=== PATIENT | male | born 1995 | race Caucasian/White ===

== ENCOUNTER 2017-10-09 23:00 | Observation (INO) ==
[2017-10-09] MEDS ORDERED: PROCHLORPERAZINE 10 MG/2 ML INJECTION IVP ONE (23:09)
[2017-10-09] MEDS ORDERED: HYDROMORPHONE 2 MG/ML INJECTION IVP ONE (23:09)
[2017-10-09] MEDS ORDERED: KETOROLAC 30 MG/ML INJECTION IVP ONE (23:09)
--- NOTE | 2017-10-09 23:15 | Emergency Department Report ---
Headache HPI - General Stated Complaint: blas Time Seen by Provider: 10/09/17 23:04 Source: patient, family Mode of arrival: ambulatory Limitations: no limitations - History of Present Illness HPI Narrative: Pt presents with his parents with severe intractable headache over the past week. Patient was apparently seen by his primary care provider who get lab work drawn the first day of his headache, was found to have an elevated white blood cell count, but thought to be having migraine-like headaches. Patient has no history of migraines or headaches, and was scheduled for an outpatient MRI next week. Patient has been using Imitrex and [id number] pain medications without relief since then. Today the patient comes in with a severe global headache that is intractable, and has been unaffected by any medication that he stay can today. Patient states that the pain is simply unbearable, and he cannot take it any longer. Patient has photophobia with nausea, but has not vomited. No fever, no diarrhea , chest or abdominal complaint. - Related Data Home Medications Medication Instructions Recorded Confirmed Methylphenidate HCl 1 tab PO DAILY 10/09/17 10/09/17 [Methylphenidate HCl Cd] Naproxen [Naproxen] 1 tab PO BID PRN 10/09/17 10/09/17 Ondansetron HCl [Ondansetron HCl] 1 tab PO PRN 10/09/17 SUMAtriptan succinate [Sumatriptan 1 tab PO DAILY PRN 10/09/17 10/09/17 Succinate] Allergies Allergy/AdvReac Type Severity Reaction Status Date / Time No Known Allergies Allergy Verified 10/09/17 23:25 Review of Systems All systems: reviewed and negative except as stated PFSH Patient Stated Medical History Hypertension Yes: BORDERLINE - Social History Smoking status: Current every day smoker Physical Exam - Limitations Limitations: no limitations - General General appearance: alert, in distress (patient appears in significant distress , throwing his head from side to side, in obvious severe pain.), other (patient appears diaphoretic,) - Normal Exams: Head:: Normocephalic without trauma Eyes:: Pupils are PERRLA w/ EOMI, No scleral icterus, irritation, or foreign bodies noted ENMT:: No facial trauma, nasal exudates, pharyngeal erythema, or exudates are noted Neck:: Full range of motion, without adenopathy, JVD, bruits or thyromegaly Chest/Respirations:: Clear all minaya, with good airflow, and symmetry bilaterally Cardiovascular:: Regular rate and rhythm, without murmur or gallop, Pulses 2+ all extremities, capillary refill, <2 seconds all extremities Abdomen:: Bowel sounds positive, soft, non-tender, non-distended, no hepatosplenomegaly, masses or bruits noted Lymphatic:: No lymphadenopathy, or lymphedema noted Musculoskeletal:: No tenderness, or deformity noted, good range of motion, all extremities Integumentary:: No rashes, hives, or bruising noted, hair and nails, without abnormality Neurological:: Patient is alert, and oriented, cranial nerves, motor/sensory/ cerebellar, exams w/o gross deficits, to observation Psychiatric:: Patient exhibits, appropriate attention, emotion and affect Course Vital Signs Temperature 98.2 F 10/09/17 23:01 Pulse Rate 57 L 10/09/17 23:01 Respiratory Rate 22 10/09/17 23:01 Blood Pressure 186/102 H 10/09/17 23:01 Pulse Oximetry 98 10/09/17 23:01 Temperature 98.0 F 10/10/17 00:22 Pulse Rate 62 10/10/17 02:16 Respiratory Rate 14 10/10/17 02:16 Blood Pressure 147/104 H 10/10/17 02:16 Pulse Oximetry 96 10/10/17 02:16 Procedures - Lumbar Puncture Time Out Performed: Yes Patient Position: left lateral decubitus Skin Prep: Povidone-Iodine 1% Local Anesthetic: lidocaine 1% Amount of anesthesia used (mL): 3 Spinal Needle Gauge: 22G Interspace Used: L4-L5 Fluid Initially Obtained: clear Complications: none Headache - MDM Narrative Medical decision making narrative: IV is placed and patient is given Toradol 30 mg, Compazine 10 mg, Dilaudid 0.5 mg IV - patient appears to be significantly improved, but states his pain has only improved from 9 down to an [address] head - normal CBC - elevated white blood cell count 15, no left shift CMP - normal Lactate is minimally elevated at 2.3, normal up to 2.2. Patient is given additional 0.5 mg Dilaudid IV Case is discussed with the patient and his parents. Due to the ongoing pain, as well as elevated white blood cell count I'm recommending a lumbar puncture to rule out subarachnoid hemorrhage and meningitis. Patient had full discussion of risk and benefit, procedure was discussed in detail, and patient agrees to the procedure. Parents are also in agreement. Patient rates his pain 6 out of 10 after Norflex and after LP Patient given third dose of Dilaudid 0.5 mg after Norflex 60 mg IV due to persistent pain. CSF - clear, normal viscosity, normal pressure. Protein is minimally elevated at 59, glucose is normal, no red cells, 2 white cells, primarily leukocytes. CSF PCR is completely negative Patient persists in having significant headache and "feels like crap." Case is discussed with Dr. Hernandez, we will admit observation for intractable headache, start 2 g magnesium sulfate in the ER, and continue IV fluids and pain medicine over the course of the night. - Lab Data Result diagrams: 10/09/17 23:50 10/09/17 23:50 Lab Results 10/09/17 10/09/17 10/10/17 Range/Units 23:50 23:50 01:13 WBC 15.0 H (4.5-11.0) T/MM3 RBC 4.78 (4.50-5.90) M/MM3 Hgb 15.7 (13.5-17.5) GM/DL Hct 44.1 (41-53) % MCV 92.3 (80-100) UM3 MCH 32.8 (26-34) UUG MCHC 35.6 (31-37) GM/DL RDW Std Deviation 39.4 (36.9-50.2) FL Plt Count 339 (130-400) T/MM3 MPV 10.0 (9.4-12.4) UM3 Immature Gran % (Auto) 0.2 (0.0-0.5) % Neut % (Auto) 50.9 (33-66) % Lymph % (Auto) 39.8 (23-45) % [place] % (Auto) 6.7 (0-9.0) % Eos % (Auto) 2.2 (0-4) % Baso % (Auto) 0.2 (0-2) % Neut # (Auto) 7.7 (1.8-7.7) T/MM3 Lymph # (Auto) 6.0 H (1-4.8) T/MM3 [place] # (Auto) 1.0 H (0-0.8) T/MM3 Eos # (Auto) 0.3 (0-0.5) T/MM3 Baso # (Auto) 0.0 (0-0.2) T/MM3 Abs Immat Gran (auto) 0.03 (0.00-0.03) T/MM3 Turbidity < 20 (0-20) Sodium 143 (134-144) MEQ/L Potassium 4.1 (3.6-5) MEQ/L Chloride 107 (98-107) MEQ/L Carbon Dioxide 22 (22-30) MEQ/L Anion Gap 14 (5-15) meq/L BUN 10.0 (9-20) MG/DL Creatinine 0.9 (0.8-1.5) mg/dL GFR Calculation 106 BUN/Creatinine Ratio 11 (6-26) RATIO Glucose 132 H (75-110) MG/DL Calculated Osmolality 276 (261-280) MOSM/KG Calcium 9.7 (8.4-10.2) MG/DL Total Bilirubin 0.70 (0.20-1.30) MG/DL Conjugated Bilirubin 0.00 (0.00-0.30) mg/dL Unconjugated Bilirubin 0.30 (0.00-1.1) mg/dL Icterus Index < 2 (0-7) AST 33 (17-59) U/L ALT 27 (1-50) U/L Alkaline Phosphatase 87 (38-126) U/L Total Protein 7.1 (6.3-8.2) g/dL Albumin 4.6 (3.5-5.0) g/dL Globulin 2.5 (2.4-3.6) G/DL Albumin/Globulin Ratio 1.8 (1.1-2.2) RATIO Plasma Lactate 2.3 H (0.6-2.2) MMOL/L Specimen Hemolysis 102 H (0-25) CSF Appearance Clear CSF Color Colorless CSF RBC 0 (0-0) /MM3 CSF Tot Nucleated Cells 2 (0-5) /MM3 CSF Neutrophils % 5 % CSF Lymphocytes % 95 % CSF Monos/Macrophage % 0 % CSF Eosinophils % 0 % CSF Basophils % 0 % CSF Other Cells % 0 % CSF Glucose 54 (40-70) mg/dL CSF Total Protein 59 (12-60) mg/dL Cryptococcus Ag (Negative) CMV DNA Detection (Negative) E. coli (PCR) (Negative) H. influenzae DNA (Negative) HSV I DNA PCR (Negative) HSV II DNA PCR (Negative) HHV-6 DNA (PCR) (Negative) Listeria (PCR) (Negative) N. meningitidis (PCR) (Negative) Parechovirus (PCR) (Negative) Entero/Rhino (PCR) (Negative) Group B Strep (PCR) (Negative) Strep pneumoniae (PCR) (Negative) VZV DNA (PCR) (Negative) 10/10/17 Range/Units 01:13 WBC (4.5-11.0) T/MM3 RBC (4.50-5.90) M/MM3 Hgb (13.5-17.5) GM/DL Hct (41-53) % MCV (80-100) UM3 MCH (26-34) UUG MCHC (31-37) GM/DL RDW Std Deviation (36.9-50.2) FL Plt Count (130-400) T/MM3 MPV (9.4-12.4) UM3 Immature Gran % (Auto) (0.0-0.5) % Neut % (Auto) (33-66) % Lymph % (Auto) (23-45) % [place] % (Auto) (0-9.0) % Eos % (Auto) (0-4) % Baso % (Auto) (0-2) % Neut # (Auto) (1.8-7.7) T/MM3 Lymph # (Auto) (1-4.8) T/MM3 [place] # (Auto) (0-0.8) T/MM3 Eos # (Auto) (0-0.5) T/MM3 Baso # (Auto) (0-0.2) T/MM3 Abs Immat Gran (auto) (0.00-0.03) T/MM3 Turbidity (0-20) Sodium (134-144) MEQ/L Potassium (3.6-5) MEQ/L Chloride (98-107) MEQ/L Carbon Dioxide (22-30) MEQ/L Anion Gap (5-15) meq/L BUN (9-20) MG/DL Creatinine (0.8-1.5) mg/dL GFR Calculation BUN/Creatinine Ratio (6-26) RATIO Glucose (75-110) MG/DL Calculated Osmolality (261-280) MOSM/KG Calcium (8.4-10.2) MG/DL Total Bilirubin (0.20-1.30) MG/DL Conjugated Bilirubin (0.00-0.30) mg/dL Unconjugated Bilirubin (0.00-1.1) mg/dL Icterus Index (0-7) AST (17-59) U/L ALT (1-50) U/L Alkaline Phosphatase (38-126) U/L Total Protein (6.3-8.2) g/dL Albumin (3.5-5.0) g/dL Globulin (2.4-3.6) G/DL Albumin/Globulin Ratio (1.1-2.2) RATIO Plasma Lactate (0.6-2.2) MMOL/L Specimen Hemolysis (0-25) CSF Appearance CSF Color CSF RBC (0-0) /MM3 CSF Tot Nucleated Cells (0-5) /MM3 CSF Neutrophils % % CSF Lymphocytes % % CSF Monos/Macrophage % % CSF Eosinophils % % CSF Basophils % % CSF Other Cells % % CSF Glucose (40-70) mg/dL CSF Total Protein (12-60) mg/dL Cryptococcus Ag Negative (Negative) CMV DNA Detection Negative (Negative) E. coli (PCR) Negative (Negative) H. influenzae DNA Negative (Negative) HSV I DNA PCR Negative (Negative) HSV II DNA PCR Negative (Negative) HHV-6 DNA (PCR) Negative (Negative) Listeria (PCR) Negative (Negative) N. meningitidis (PCR) Negative (Negative) Parechovirus (PCR) Negative (Negative) Entero/Rhino (PCR) Negative (Negative) Group B Strep (PCR) Negative (Negative) Strep pneumoniae (PCR) Negative (Negative) VZV DNA (PCR) Negative (Negative) Disposition Clinical Impression: Intractable headache Qualifiers: Headache type: unspecified Headache chronicity pattern: acute headache Qualified Code(s): R51 - Headache Disposition: To [facility] Condition: Improved Prescriptions: No Action SUMAtriptan succinate [Sumatriptan Succinate] 1 tab PO DAILY PRN PRN Reason: Pain Ondansetron HCl [Ondansetron HCl] 1 tab PO PRN PRN Reason: Vomiting Naproxen [Naproxen] 1 tab PO BID PRN PRN Reason: Pain Methylphenidate HCl [Methylphenidate HCl Cd] 1 tab PO DAILY Referrals: Bryan Perkins MD [Primary Care Provider] - - Seen By: physician
[2017-10-09] MEDS: SALINE FLUSH 10ml SYRINGE IVF PRN (23:33)
[2017-10-10] MEDS ORDERED: HYDROMORPHONE 2 MG/ML INJECTION IVP ONE ×2 (00:13→02:05)
[2017-10-10] MEDS ORDERED: ORPHENADRINE 60 MG/2 ML INJECTION IVP ONE (00:39)
[2017-10-10] MEDS ORDERED: LIDOCAINE INFIL ONE (00:55)
[2017-10-10] MEDS: SALINE FLUSH 10ml SYRINGE IVF PRN ×2 (02:15→04:19)
[2017-10-10] MEDS: MAGNESIUM SULFATE 1gm PREMIX 1 GM/100 ML BAG IV SCH ×2 (03:01→05:35)
[2017-10-10] MEDS ORDERED: ONDANSETRON 4 MG/2 ML INJECTION IVP PRN (03:29)
[2017-10-10] MEDS ORDERED: HYDRALAZINE 20 MG/ML INJECTION IVP PRN (03:29)
--- NOTE | 2017-10-10 03:48 | History & Physical Report ---
History of Present Illness Date: 10/10/17 Chief complaint: headache HPI: This is a 21 y/o male who had onset of headache global in nature over the past 7 days. He saw his PCP this past week who started him on migraine medication. ( ? Imitrex vs Maxalt). This has not helped his headaches. He is seen in the ED tonight because of increasing symptoms. ED evaluation included lab work, CT head which was normal. The patient's WBC was mildly elevated. ED preceded to do LP which was not infected. Protein was mildly elevated. PcR neg for viral etiology. The patient received significant medications in the ED without relief. Interestingly enough hot water on the back of his neck seems to help the headache. He has had no fever, chills or sweats. Possible mild photophobia. No change in vision. no neck pain, no congestion, no sore throat. no chest pain, no cough. mild nausea with emesis. no change in bm, or urine. Father provides most of the history and states that he has had no change in diet. He lives with his brother. Works for a [employer] in [employer]. At this time he will be admitted for further management of his symptoms. Review of Systems All systems PM: 10-point ROS was reviewed, no additional remarkable complaints except Past Medical History Medical History Updates: none Surgical History: none Family History Updates: father alive and boarderline HTN, Mother alive and healthy. paternal history of later in life HTN. no adolescents in the family with HTN or renal disease. Family History: As Above - Social History Smoking status: Current every day smoker Substance use type: unknown Alcohol intake frequency: other (father in room and patient unwilling to talk due to pain and father's presence.) Household members: family service: No Current occupational status: employed Medications Home Medications Medication Instructions Recorded Confirmed Type Methylphenidate HCl 1 tab PO DAILY 10/09/17 10/09/17 History [Methylphenidate HCl Cd] Naproxen [Naproxen] 1 tab PO BID PRN 10/09/17 10/09/17 History Ondansetron HCl [Ondansetron HCl] 1 tab PO PRN 10/09/17 History SUMAtriptan succinate [Sumatriptan 1 tab PO DAILY PRN 10/09/17 10/09/17 History Succinate] Allergies Allergy/AdvReac Type Severity Reaction Status Date / Time No Known Allergies Allergy Verified 10/09/17 23:25 Exam Vital Signs: Temperature 98.2 F 10/10/17 02:57 Pulse Rate 57 L 10/10/17 03:30 Respiratory Rate 20 10/10/17 03:30 Blood Pressure 152/89 H 10/10/17 03:30 Pulse Oximetry 97 10/10/17 03:30 Telemetry Rhythm: Sinus Rhythm - Constitutional Present: moderate distress, well nourished, well developed, obese, disheveled, cooperative, agitated - Routine HEENT Exam Head: Present: normocephalic, atraumatic. Absent: cushingoid faces Eye: Present: PERRL, normal accommodation ENT: Present: mucous membranes moist - Routine Neck Exam Present: supple, full ROM - Routine Respiratory Exam Present: CTA bilaterally - Routine Cardiovascular Exam Present: RRR, no murmur - Routine Abdominal Exam Present: soft, normoactive bowel sounds, non distended, non tender - Routine Extremities Exam Present: no edema, non tender, full ROM - Routine Back/Spine/Pelvis Exam Back/Spine: Present: full ROM - Routine Skin Exam Present: intact - Routine Neurological Exam Present: alert, oriented X3, CN II-XII intact, moving all extremities, normal tone, vision grossly intact, hearing grossly intact, normal speech - Routine Psychiatric Exam Present: anxious Results - Labs CBC & Chem 7: 10/10/17 04:30 10/10/17 04:30 Labs: reviewed with the following labs and images to be discussed below Assessment and Plan (1) Intractable headache Current visit: Yes Status: Acute (2) Hypertension Current visit: Yes Status: Acute (3) Elevated lactic acid level Current visit: Yes Status: Acute (4) Tobacco abuse Current visit: Yes Status: Acute Assessment and Plan: 1. intractable headache acute POA: CT head negative. LP negative except for mild elevated protein. PcR viral negative. This is not infectious mediated. Consider MS, vs migrainous. Again unlikely. Patient hypertensive. Is pain causing hypertension or is hypertension causing pain? At this time will treat blood pressure with prn hydralazine. (see discussion below). It is the belief of this author that the patient's elevated blood pressure is the nidus for his headache. 2. HTN urgency acute POA: I will start hydralazine prn. check TSH, A1C, Lipid panel. check blood pressure in arms and legs. check urine drug screen. Based on the patient's clinical response to IV meds will make further considerations. If UDS negative will need to consider plasma renin level. Consider cardiology cx to further advise. 3. 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 DVT ppx: SCD 5. gastric ppx: PPI DVT Prophylaxis: SCD's GI Prophylaxis: Protonix Resuscitation Status: Full Code - Time spent with patient Time with patient PN: 35 minutes - Physician Narrative Physician: Lilliana Stephens MD Narrative: Date: 10/10/17 Time: 1539 Dr. Hernandez's note reviewed. Freddy interviewed and examined. His parents provide much of the history. CC: Intractable headache HPI: Freddy is a 21-year-old male with history of ADHD with onset of periorbital and neck pain about one week ago which has been persistent and escalating since that time. He had nausea and vomiting 9 days ago with initial headache and had recurrent nausea and vomiting yesterday per his mother's history. Freddy denies visual changes, diplopia, fevers, chills, or sweats. He's had no focal neurological deficits in conjunction with headaches at any point in time. He was seen in his primary care physician's office several days after onset of headache at which time neurological exam was unremarkable. He was treated with naproxen with subsequent addition of sumatriptan. He has also tried over-the- counter Excedrin Migraine and finds that it is more effective than any of the prescribed products offering brief relief lasting 5 or 6 hours although there is minor residual headache still present. Patient also reports that hot showers with water over his neck and upper back provide partial relief. He's had no URI symptoms, sinus pressure, or sore throat; he denies GI symptoms, palpitations, or chest pain. He denies past history of hypertension although blood pressure was slightly elevated when he was seen in the office last week but improved after he was given medications for symptom control. He presented to the emergency room yesterday evening due to persistent headache where he was found to have leukocytosis and subsequently underwent lumbar puncture with unremarkable CSF; he was subsequently hospitalized for further assessment and management. He denies recent injuries/motor vehicle accidents or other upper back strains. PH/SH/FH: agree with that recorded above by Dr. Hernandez with addition of history of ADHD on multiphase Ritalin taken during the week. Patient reports smoking occasionally, occasional alcohol use indicating a couple of drinks usually around payday, and occasional marijuana use but he denies daily marijuana use or other substance use. 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 ROS: As per Dr. Hernandez EXAM: General-NAD, drowsy but became more alert and cooperative as exam; 98.2, 156/99 , 64, 99% on room air HEENT-PERRL, EOMI without nystagmus, conjunctiva clear, sclera anicteric, conjugate gaze, facial structures symmetric, oropharynx clear, neck supple and without adenopathy Lungs-respirations nonlabored, good airflow, breath sounds clear Cardiac-regular rhythm, S1 and S2, low-grade tachycardia at time of examination Abd-soft, nontender, without palpable mass Ext-without edema Skin-minor bruising on shins, no generalized rash, no open wounds Musculoskeletal-range of motion neck is good, no tenderness to palpation over cervical spine however there is tenderness and tightness on palpation over the upper trapezius muscles/upper back Neuro-cranial nerves III through XII intact, motor tone/power entirely normal, no drift upper extremities, [id number] normal, sensation intact to light touch 4 extremities and across 3 distributions of the face bilaterally Psych-fatigued, slightly anxious DATA: White count 15.0-16.0 with 94% neutrophils, comprehensive metabolic panel normal except glucose 132-142, A1c 4.8; lactic acid 2.3-1.2, TSH 1.93. Urinalysis unremarkable, UDS positive marijuana CSF-clear, colorless, 0 RBCs, 2 WBCs with 95% lymphocytes; glucose 54, protein 59; CSF antigen panel negative CT head reviewed by myself demonstrating no acute abnormalities MRI head with and without contrast-also reviewed by myself and no pathology visualized however radiology's reading a small linear tubular structure possibly a congenital vascular abnormality; CT angiogram advised A/P: Intractable headache Muscle spasms/neck pain Hypertension Leukocytosis ADHD Patient has clear muscle spasm of the upper back on examination and likely has a component of tension headache with overlap migraine. Flexeril initiated at 5 mg 3 times a day; resume naproxen, and add heating pad. Given abnormality described on MRI head will proceed with CT angiogram head for better definition-patient and parents advised of the anomaly and that is likely an incidental finding and unrelated to headaches. Trial of Depacon given this morning for headache in the event there was an inflammatory component given duration of headache-no change. I have consulted Dr. Tena after discussion with Dr. Perkins and family. Patient primarily using oral medications as he has not found IV narcotics effective. Blood pressures remain modestly elevated through the day although the most recent reading was improved; unclear if pain is triggering headache or vice versa; lisinopril initiated. Leukocytosis present but no evidence of BAND SAW MARKER infection and patient denies all symptoms referable to URI/gastroenteritis/etc. No signs or symptoms to suggest underlying infection-stress response likely. Hospital Course Summary Disclaimer: The visit summary below is not to be considered part of the above Progress Note.
[2017-10-10] MEDS: PANTOPRAZOLE 40 MG INJECTION IVP SCH (04:18)
[2017-10-10] MEDS: HYDROCODONE/APAP 5mg/325mg TABLET PO PRN ×3 (04:19→15:53)
--- NOTE | 2017-10-10 07:13 | CT Scan Report ---
Indication: severe headache PROCEDURE: CT head/brain wo con: Encounter: Initial Comparison: None Technique: Axial CT images through the head were performed without contrast. Iterative Reconstruction dose reducing technique was utilized. FINDINGS: Motion artifact limits the exam. The ventricles are of normal size, shape, and configuration for the patient's age. There is no evidence of acute intracranial hemorrhage, midline displacement, or mass effect. The CT attenuation of the brain parenchyma is normal within the cerebellum, brain stem, and cerebral hemispheres. The tympanic cavities and mastoid air cells are free of appreciable disease. There are no definite fractures of the skull base, calvarium, or visualized portion of the midface. IMPRESSION: No CT evidence of acute intracranial abnormality. There is a preliminary report by [email or web address]. .
[2017-10-10] MEDS ORDERED: VALPROATE IVP ONE ×2 (09:57→11:15)
[2017-10-10] MEDS ORDERED: CYCLOBENZAPRINE 5 MG TABLET PO PRN (09:59)
[2017-10-10] MEDS ORDERED: SALINE FLUSH 10ml SYRINGE ONE ×2 (10:46→15:45)
[2017-10-10] MEDS ORDERED: VALPROATE IV 500 MG in NS 100 ML IV ONE (11:00)
--- NOTE | 2017-10-10 15:13 | Magnetic Resonance Report ---
Indication: headache PROCEDURE: MR head/brain wo/w con: Encounter: Initial Comparisons: Head CT dated October 09, 2017 Technique: Multiplanar, multisequence, MR imaging of the head with and without contrast was acquired. Contrast: 17 mL of ProHance FINDINGS: There is an enhancing tubular structure in the right middle cranial fossa running from the anterior temporal lobe posteriorly to the region of the occipital lobe. This measures 6 to 7 mm in maximal diameter, best seen on axial postcontrast image #8. The ventricles are of normal size, shape, and contour for the patient's age. The brain stem, cerebellum, and cerebral hemispheres have a normal morphologic appearance as well as MR signal intensity on all pulse sequences. Following intravenous administration of contrast, no areas of abnormal enhancement are evident. There are no areas of restricted diffusion to suggest an acute infarct. There is no evidence of an intracranial mass lesion, intracranial hemorrhage, or hydrocephalus. The visualized portions of the orbits, calvarium, paranasal sinuses, and skull base demonstrate no significant abnormality. 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 Further evaluation with CT angiography or MR angiography may be helpful. .
[2017-10-10] MEDS ORDERED: IOHEXOL 350mg/ml 75ml INJECTION ONE (15:45)
[2017-10-10] MEDS: SALINE FLUSH 10ml SYRINGE IV PRN ×3 (15:55→17:21)
[2017-10-10] MEDS: HYDROMORPHONE 2 MG/ML INJECTION IVP PRN ×2 (15:55→21:20)
[2017-10-10] MEDS: LISINOPRIL 10 MG TABLET PO SCH (16:37)
--- NOTE | 2017-10-10 17:00 | Consultation ---
DATE OF CONSULTATION 10/10/[address] Victoria CHIEF COMPLAINT Headache. HISTORY OF PRESENT ILLNESS The patient is a 21-year-old male with no significant past medical history. He has been complaining of severe headache for the past nine days. The headache is described as a throbbing pain involving the forehead and moving to the back of the head, occiput, lower head and neck. The patient was tried on several medications including Imitrex, narcotic and NSAIDs. He has had no prolonged relief with any of those medications. He has had some good response to Excedrin in particular. The patient denies having any focal weakness or numbness with the headache. He was not sick prior to having the headache. He denies having any viral illnesses prior to having the headache. The patient had a spinal tap that showed a slightly elevated protein level of 59. His white count was normal. His lab workup for any CSF infection came back negative so far. He also had an MRI of the brain that showed some enhancing tubular abnormalities in the right middle cranial fossa which can be developmental venous anomaly. Otherwise, the brain itself was normal. There were no signs of bleed or any aneurysmal changes. Patient's condition has been fluctuating in severity since being admitted. He received Depakote IV earlier today and this has not helped significantly with his headaches. He has been given some narcotic including [place] and Dilaudid with little benefit. The patient has had no signs of meningeal irritation or any other cervical spondylotic problem. On physical examination the patient was very sedated from being on Ativan for his CT angiogram and MRI testing. He was able to converse slowly due to drowsiness. He has had no focal weakness or numbness. His reflexes and plantar reflexes were normal. Pupils were round, reactive and equal. Extraocular muscles were intact. Visual field was difficult to assess due to drowsiness. Speech was slow overall due to drowsiness. ASSESSMENT 1. Status migrainosus, most probably related to new-onset migraine headache. 2. We cannot rule out a mild viral meningitis or aseptic meningitis causing the patient to have some severe intractable headache. This can be associated with sinus disease in particular. PLAN 1. I agree with a CT angiogram to rule out any other anomalies in the vascular system of the head and neck. 2. Start patient on Decadron IV 4 to 6 mg q.12h. for headache prevention and possible meningeal irritation. 3. Consider DHE treatment if headache persists. This can be given at 0.5 mg q. 8 hours as needed until headache subsides. 4. Continue using sedation with Ativan or Valium to help the patient sleep which may help get rid of the headache. MTDD
[2017-10-10 17:07] VITALS: BMI 28.1
[2017-10-10] MEDS: NS 1,000 ML IV SCH (17:20)
[2017-10-10] MEDS: DEXAMETHASONE 20 MG/5 ML INJECTION IVP SCH ×2 (18:28→21:06)
--- NOTE | 2017-10-10 20:30 | CT Scan Report ---
Indication: headache, abn MRI head PROCEDURE: CT angio head: Encounter: Initial Comparison: Brain MRI from today Technique: CT Head: Axial images were obtained through the head without and with intravenous contrast. CTA: Angiographic phase axial images were acquired through the entire head following intravenous contrast administration. Multiplanar 2-D reconstructions and maximum intensity projection images were produced for additional assessment. 3-D volume rendered images of the [place] were also produced by the technologist. Automated Exposure Control and Iterative Reconstruction dose reducing techniques were utilized. Contrast: Omnipaque 350 74mL Findings: CT head without and with contrast: The ventricles are of normal size, shape, and contour for the patient's age. The brainstem, cerebellum, and cerebral hemispheres otherwise have a normal morphology and CT attenuation. No hemorrhage, mass effect, mass lesions, or edema is evident. No areas of abnormal enhancement are seen. The visualized portions of the skull base, sinuses, and calvarium demonstrate no abnormality. CTA head with intravenous contrast: The distal cervical, petrous, cavernous, and supraclinoid segments of the internal carotid arteries are widely patent without significant stenosis or other vascular abnormalities. The anterior, middle, and posterior cerebral arteries are also widely patent without significant stenosis or occlusion. No aneurysms or arterial abnormality are evident. 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 There is no evidence of a fistula or cluster of feeding vessels associated with this. The visualized portion of the dural sinuses and cortical veins are also well seen and show no definite stenosis or occlusion. Impression: 1. CT head: Unremarkable head CT, both before and after contrast. 2. CTA head: No aneurysms or AV fistula. The right temporal abnormality seen by MRI is an incidental developmental venous anomaly, likely of no clinical significance. There is a preliminary report by [employer]. .
[2017-10-10] MEDS: NAPROXEN 500 MG TABLET PO PRN (21:17)
[2017-10-10] MEDS: CYCLOBENZAPRINE 5 MG TABLET PO SCH (21:17)
[2017-10-11] MEDS: NS 1,000 ML IV SCH ×2 (03:14→14:20)
[2017-10-11] MEDS: PANTOPRAZOLE 40 MG INJECTION IVP SCH (03:14)
[2017-10-11] MEDS: CYCLOBENZAPRINE 5 MG TABLET PO SCH ×3 (10:11→21:24)
[2017-10-11] MEDS: DEXAMETHASONE 20 MG/5 ML INJECTION IVP SCH (10:11)
[2017-10-11] MEDS: LISINOPRIL 10 MG TABLET PO SCH (10:12)
[2017-10-11] MEDS: NAPROXEN 500 MG TABLET PO PRN ×2 (10:15→17:17)
--- NOTE | 2017-10-11 13:34 | Progress Note ---
- Date 10/11/17 Subjective: This is a 21 y/o male who had onset of headache global in nature over the past 7 days. He saw his PCP this past week who started him on Imetrex without improvement. He is seen in the ED 10/10/17 because of increasing symptoms. ED evaluation included lab work, CT head which was normal. The patient's WBC was mildly elevated. ED preceded to do LP which was unremarkable with protein mildly elevated. PcR neg for viral etiology. The patient received significant medications in the ED without relief. Interestingly enough hot water on the back of his neck seems to help the headache. He has had no fever, chills or sweats. Possible mild photophobia. No change in vision. no neck pain, no congestion, no sore throat. no chest pain, no cough. mild nausea with emesis. no change in bm, or urine. Father provides most of the history and states that he has had no change in diet. He lives with his brother. 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 At this time he will be admitted for further management of his symptoms. This am when seen by me his ZARCO is at a 2-3. No severe. He states usually in am it is better than later in the day. He denies fever or chills. He denies coffer sputum production. He denies lightheadedness or dizziness. He denies palpitations. He denies chest pain, pressure tightness. He denies shortness of breath, distribution exertion, PND or orthopnea. He is eating. He denies any genitourinary symptoms. He reports he would like to go home today. His white blood count was up a bit from yesterday. He did however receive a dose of Decadron last evening. Objective Vital signs: Temperature 97.8 F 10/11/17 00:00 Pulse Rate 67 10/11/17 11:45 Respiratory Rate 12 10/11/17 11:45 Blood Pressure 131/72 10/11/17 11:45 Pulse Oximetry 97 10/11/17 11:45 Height/Weight/BMI: Height 1.78 m Weight 89.2 kg Body Mass Index 28.1 Comments: Gen: alert and oriented. NAD. ZARCO better. Skin: warm and dry HEENT: NC/AT PERRL, EOMI, Sclera, lids and conjunctiva wnl. MMM. OP clear. Neck: No JVD, Carotids 2+ without bruits Lungs: clear. No rales, rhonchi or wheezes CV: regular. No murmur, rub or gallop Abd: soft. +BS. NT/ND MS: No edema. Good strength and ROM Neuro: No focal deficits Psy: Appropriate mood and affect Results - Labs CBC & Chem 7: 10/11/17 14:00 10/10/17 04:30 Assessment and Plan (1) Intractable headache Current visit: Yes Status: Acute (2) Hypertension Current visit: Yes Status: Acute (3) Elevated lactic acid level Current visit: Yes Status: Acute (4) Tobacco abuse Current visit: Yes Status: Acute Assessment and Plan: 1. intractable headache acute POA: -CT head negative. -LP negative except for mild elevated protein. -PcR viral negative. -This is not infectious mediated. -Consider MS, vs migrainous. Again unlikely. -Patient was hypertensive, pain better as is ZARCO, Still ? is pain causing hypertension or is hypertension causing pain -Methylphenidate can cause ZARCO as well as HTN, I would try to avoid if possible. 2. HTN urgency acute POA: -Hydralazine prn, none needed since 10/10 at 9am -TSH-Normal -[id number] -Lipid panel-relatively unremarkable except low HDL -urine drug screen-neg except for cannabinoids. -Will check plasma renin level. 3. 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 Marijuana use-advised to stop 5. Leukocytosis -?due to steroids. Will try to get him off these. -Repeat labs in am -Check CXR -UA unremarkable on admission 6. Prophylaxis: SCDs and PPI DVT Prophylaxis: SCD's GI Prophylaxis: Protonix Resuscitation Status: Full Code - Physician Narrative Narrative: Date: 10/11/17 Time: 1330 Hospital Course Summary Disclaimer: The visit summary below is not to be considered part of the above Progress Note.
--- NOTE | 2017-10-11 15:10 | Progress Note ---
DATE 10/11/[address] Victoria PATIENT'S CHIEF COMPLAINT Headache. HISTORY OF PRESENT ILLNESS Patient is doing better this morning,. He woke up with no headache and he started having some mild headache on the left side of his face and forehead. The CT angiogram showed no significant abnormalities. There was a possibility of some mild venous angioma. The patient received the first dosage of Decadron last evening. This may have helped a little bit. He was able to sleep better with the Ativan. He reports no new focal weakness or numbness. OBJECTIVE His vitals are improving. His blood pressure is now down to 131/69. His temperature has been in the 97-98 degree level. His neurological examination is intact. ASSESSMENT Intractable migraine type headache with status migrainosus. This can be related to new-onset migraine versus possible mild viral disease. PLAN 1. Continue Decadron 4 mg IV q.12h. This can be changed to oral Decadron 4 mg p.o. b.i.d. for a week, then 2 mg p.o. b.i.d. for a week and stop. 2. Consider starting patient on amitriptyline 25 mg p.o. q.h.s. to help him sleep and prevent headaches. 3. Follow up with any CSF results which may be pending. The patient can follow up with me in the office in two weeks to work on headache prevention and treatments for headaches. GRAY
[2017-10-11] MEDS: DEXAMETHASONE 1 MG TABLET PO SCH (21:25)
[2017-10-12] MEDS ORDERED: PANTOPRAZOLE 40 MG TABLET PO SCH (06:30)
--- NOTE | 2017-10-12 08:10 | XRay Report ---
INDICATION: Leukocytosis PROCEDURE: CHEST 2-VIEWS UPRIGHT (PA & LAT) Encounter: Initial COMPARISON: None FINDINGS: The lungs are clear without evidence of focal abnormal airspace opacity. There is no pleural effusion or pneumothorax. The heart size, mediastinal contours and pulmonary vascularity are within normal limits. There is no significant skeletal abnormality. IMPRESSION: No acute cardiopulmonary disease. .
[2017-10-12 08:59] VITALS: BP 113/76; PULSE 78; RESP 16; TEMP 97.5; O2SAT 100
[2017-10-12] MEDS: DEXAMETHASONE 1 MG TABLET PO SCH (09:15)
[2017-10-12] MEDS: CYCLOBENZAPRINE 5 MG TABLET PO SCH (09:15)
[2017-10-12] MEDS: NAPROXEN 500 MG TABLET PO PRN (09:16)
--- NOTE | 2017-10-12 10:01 | Discharge Summary ---
Discharge Information Date of admission: 10/10/17 03:26 Anticipated date of discharge: 10/12/17 Attending Physician: Padmaja Victoria MD Primary care physician: Bryan Perkins MD Consults: 10/10/17 15:46 Physician Consult [CONS] Routine Consulting Provider: Lilian Tena Reason For Exam: intractable headache Ordering Provider has Notified Retirement Administrator: Yes - Discharge Diagnosis (1) Intractable headache Status: Acute (2) Hypertension Status: Acute (3) Elevated lactic acid level Status: Acute (4) Tobacco abuse Status: Acute Intractable headache ADD HTN - Procedures Procedures: Lumbar puncture 10/10/17 - Laboratory Labs: 10/12/17 04:15 10/12/17 04:15 - Microbiology LP, neg to date - Radiology Radiology: CT angio of the head 10/10/17 Impression: 1. CT head: Unremarkable head CT, both before and after contrast. 2. CTA head: No aneurysms or AV fistula. The right temporal abnormality seen by MRI is an incidental developmental venous anomaly, likely of no clinical significance. MRI Head w/wo 10/10/17 IMPRESSION: Enhancing tubular abnormality in the right middle cranial fossa probably represents a developmental venous anomaly or less likely a dural arteriovenous fistula. Further evaluation with CT angiography or MR angiography may be helpful. CXR 10/11/17 Normal History of Present Illness HPI: This is a 21 y/o male who had onset of headache global in nature over the past 7 days. He saw his PCP this past week who started him on migraine medication. ( ? Imitrex vs Maxalt). This has not helped his headaches. He is seen in the ED tonight because of increasing symptoms. ED evaluation included lab work, CT head which was normal. The patient's WBC was mildly elevated. ED preceded to do LP which was not infected. Protein was mildly elevated. PcR neg for viral etiology. The patient received significant medications in the ED without relief. Interestingly enough hot water on the back of his neck seems to help the headache. He has had no fever, chills or sweats. Possible mild photophobia. No change in vision. no neck pain, no congestion, no sore throat. no chest pain, no cough. mild nausea with emesis. no change in bm, or urine. Father provides most of the history and states that he has had no change in diet. He lives with his brother. 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 At this time he will be admitted for further management of his symptoms. Objective Vital signs: Temperature 97.5 F 10/12/17 08:57 Pulse Rate 78 10/12/17 08:57 Respiratory Rate 16 10/12/17 08:57 Blood Pressure 113/76 10/12/17 08:57 Pulse Oximetry 100 10/12/17 08:57 Height/Weight/BMI: Height 1.78 m Weight 88.7 kg Body Mass Index 28.1 Comments: Gen: alert and oriented. NAD. ZARCO better. Skin: warm and dry HEENT: NC/AT PERRL, EOMI, Sclera, lids and conjunctiva wnl. MMM. OP clear. Neck: No JVD, Carotids 2+ without bruits Lungs: clear. No rales, rhonchi or wheezes CV: regular. No murmur, rub or gallop Abd: soft. +BS. NT/ND MS: No edema. Good strength and ROM Neuro: No focal deficits Psy: Appropriate mood and affect Hospital Course This is a general summary of the patient's hospital course. For more details refer to the complete medical record. Hospital course: was admitted on 416 with intractable headaches. He had an LP in the ER and thus far no growth to date. An MRI was performed showing and enhancing tubular abnormality in the right middle cranial fossa felt to represent a developmental venous anomaly or less likely of dural AV fistula and a CT angiography was recommended. Subsequently a CT of the head was performed which showed no aneurysms or AV fistula. The right temporal abnormality seen by MRI was felt to be an incidental developmental venous anomaly likely of no clinical significance. Dr. Tena was consulted and recommended Decadron IV 4 to 6 mg every 12 hours for headache prevention and possible meningeal irritation. He did recommend that if headache persisted to consider DHE. This was never started. The patient improved daily. His blood pressures were controlled with medication. He was taken off his amphetamine for his ADD. He was canceled on smoking and marijuana use cessation. He did seem to have considerable tension in the musculature of his neck and shoulders which seem to exacerbate his headache and muscle relaxer's did help. He did develop leukocytosis likely related to not only the stress but also the steroids. This was adequately trending down on the day of discharge. His headache was much improved on the day of discharge. I did strongly encourage him to continue off of the methylphenidate as this can cause headaches, insomnia and hypertension. He told me he would take that into consideration. He was up and ambulating without difficulty. He was felt to be stable for discharge on 10/12/17. Time spent with patient: 25 - 35 minutes Resuscitation Status: Full Code Discharge Plan - Discharge Disposition Disposition: Discharged Home, Self-Care *Condition: Improved Reason For Visit (Visit label in EMR): intractable headache - Discharge Medications *Discharge Medications: New Cyclobenzaprine [Flexeril] 5 mg PO TID #20 tab Dexamethasone Po [Decadron] 1 mg PO BID #14 tab Lisinopril [Prinivil] 10 mg PO DAILY #30 tab Continue Naproxen 1 tab PO BID PRN PRN Reason: Pain Discontinued SUMAtriptan succinate [Sumatriptan Succinate] 1 tab PO DAILY PRN PRN Reason: Pain Ondansetron HCl [Ondansetron HCl] 1 tab PO PRN PRN Reason: Vomiting Methylphenidate HCl [Methylphenidate HCl Cd] 1 tab PO DAILY - Discharge Packet/Instructions *Diet: Regular *Activity: As tolerated *Pain Management/Treatment: Naproxen *Wound Care: N/A *Expected Signs/Symptoms: Recurrent ZARCO, contact PCP *Notify Physician if: Recurrent ZARCO *During Business Hours Contact: Dr. Perkins *After Business Hours Contact: strategic planning consultant for Dr. Perkins *Pending Lab/Results: No Pending Lab - Referrals/Follow Up *Referrals/Follow Up: Bryan Perkins MD [Primary Care Provider] - 1 Week (Please make appt for pt. ) Lilian Tean MD [Physician] - 2 Weeks (Please make appt for pt. ) - Patient Handouts Patient Handouts: Acute Headache (GEN) - Dismissal Complete Discharge Instructions are:: Complete Physician Narrative - Narrative Attestation Narrative: Date: 10/12/17 Time: 956
--- NOTE | 2017-10-12 10:23 | Work/School Release ---
Work/School Release - Date Date: 10/12/17 - Work Release Excused for:: 10/10/17 through 10/12/17 May return to work on:: 10/13/17 Restrictions:: None May resume normal activity on:: 10/13/17
[2017-10-12] MEDS: LISINOPRIL 10 MG TABLET PO SCH (10:54)
== END 2017-10-12 16:25 | disposition home or self-care (01) ==
LOC: MED 23:00 → ED 23:00 → MED 10-10 03:15 → SUATTDRO 10-10 03:26
PROVIDERS: ADMIT Emergency Medicine; ATTEND Internal Medicine